=== PATIENT | female | born 1955 | race Asian ===

== ENCOUNTER 2019-12-04 18:44 | Emergency (ER) | payer SELFPAY ==
[~2019-12-04] VITALS: Ht 157.5 cm; Wt 47.6 kg
[2019-12-04] MEDS ORDERED: ACETAMINOPHEN 325 MG TABLET ONE (19:25)
[2019-12-04] MEDS ORDERED: ACETAMINOPHEN 325 MG TABLET PO ONE (19:30)
[2019-12-04] MEDS ORDERED: IBUPROFEN 600 MG TABLET PO ONE ×2 (20:13→20:30)
[2019-12-04 20:48] VITALS: BP 143/85
--- NOTE | 2019-12-04 22:35 | NUR ---
TAXI VOUCHER PROVIDED
== END 2019-12-04 21:21 | disposition home or self-care (01) ==
LOC: ER 18:51
DX: U07.1 COVID-19 (principal); J12.89 Other viral pneumonia; R00.0 Tachycardia, unspecified
CPT/HCPCS: 71045-TC